=== PATIENT | male | born 1990 | race Caucasian/White ===

== ENCOUNTER 2021-06-18 08:21 | Emergency (ER) | payer SELFPAY ==
[~2021-06-18] VITALS: Ht 172.7 cm; Wt 119.8 kg
--- NOTE | 2021-06-18 09:50 | PHYS DOC ---
Past Medical History Past Medical History: Anxiety, Hypertension Alcohol Use: None Drug Use: None General Adult EDM: Chief Complaint: ANXIETY/PANIC ATTACK HPI: HPI: Patient is a 31 year old male with history of high blood pressure and anxiety who presents with 2 weeks of progressive, worsening anxiety. He states that he has become increasingly irritable and feels like he is "caged." He denies any pain, but reports shortness of breath and sensation of difficulty swallowing. P atient states he has been prescribed alprazolam in the past to control his anxiety by his primary care doctor, but he has been out of the medication for about a month. During this time, he also has been out of his Norvasc 5 mg. Patient denies HI/SI. Review of Systems: Review of Systems: Constitutional: Denies fever or chills. Eyes: Denies change in visual acuity or visual field deficits. Respiratory: See HPI Cardiovascular: Denies chest pain, palpitations or edema. GI: Denies abdominal pain, nausea, vomiting, bloody stools or diarrhea. : Denies dysuria or hematuria. Musculoskeletal: Denies back pain or joint pain. Integument: Denies rash or other skin lesions. Neurologic: Denies headache, focal weakness or sensory changes. Psychiatric: See HPI Heart Score: C/O Chest Pain: No Current Medications: Current Medications Medications (Trade) Dose Ordered Sig/Alina Start Time Stop Time Status Last Admin Dose Admin Amlodipine Besylate (Norvasc) 5 mg 1X ONCE 06/18/21 09:30 06/18/21 09:31 UNV Lorazepam (Ativan) 1 mg 1X ONCE 06/18/21 09:30 06/18/21 09:31 UNV Physical Exam: PE: Constitutional: Well developed, well nourished, non-toxic appearance, patient is tearful and appears tense. HENT: Normocephalic, atraumatic, bilateral external ears normal, oropharynx moist, no oral exudates, nose normal. Eyes: PERRLA, EOMI, conjunctiva normal, no discharge. Neck: Normal range of motion, no tenderness, supple, no stridor. Cardiovascular: Heart rate regular rhythm, no murmur. Lungs & Thorax: Bilateral breath sounds clear to auscultation. Abdomen: Bowel sounds normal, soft, no tenderness, no masses, no pulsatile m asses. Skin: Warm, dry, no erythema, no rash. Neurologic: Alert and oriented x4, motor function grossly intact, sensory function grossly intact, no focal deficits noted. Psychologic: Affect anxious, fair judgment, mood "anxious." EKG: EKG: EKG Interpreted by Dr. Evans at 0948: Regular rate and rhythm 73 bpm with no ectopic beats. QT 374 ms/QTc 416 ms. No STEMI. Course & Med Decision Making: Course & Med Decision Making Pertinent Labs and Imaging studies reviewed. (See chart for details) Patient is a 31-year-old male with history of anxiety. He has been out of his medication for about a month. He reports over the past 2 weeks, his anxiety has progressively gotten worse. He reports he is extremely sensitive and irritable. He reports he has been overwhelmed while driving, to the point where he is pulled over to calm himself down. Patient was provided with Ativan and 1 dose of Norvasc here in the department. He reports he is starting to calm down on reevaluation. In discussing treatment going forward, I offered prescription for hydroxyzine as well as a 1 month supply of Norvasc. Patient states that hydroxyzine has not worked for him in the past, and requests refill of benzodiazepine. I discussed that benzos are easily abused and not the drug of choice for daily anxiety. Patient verbalizes understanding, but states he still would rather have benzos versus hydroxyzine. In my opinion, it would be best that he see a mental health professional for a refill of benzodiazepine medication. I will send in a higher dose hydroxyzine as well as 1 month supply of Norvasc. Patient was provided with resources for mental health evaluation and treatment. Patient understands and is agreeable to discharge plan. Lizet Disclaimer: Lizet Disclaimer: This electronic medical record was generated, in whole or in part, using a voice recognition dictation system. Departure Departure Impression: Primary Impression: Anxiety disorder Qualified Codes: F41.3 - Other mixed anxiety disorders Additional Impression: Long-term use of high-risk medication Disposition: HOME / SELF CARE / HOMELESS Condition: STABLE Patient Instructions: Anxiety and Panic Attacks, [id number] Additional Instructions: As discussed, benzodiazepine drugs are a high risk medication and can form dependence quickly. They are best prescribed by mental health professionals for breakthrough anxiety/panic attacks. As you were going to see your primary care provider within the week, and you have not been provided with resources to seek psychological/psychiatric evaluation and care, I have prescribed a course of Vistaril. Additionally, you have a 1 month supply of your high blood pressure medication as well. Please return to the emergency department if you develop any new symptoms or your symptoms are unmanageable at home. Please keep your appointment next week with your primary care provider and set up an appointment with mental health professional at your convenience. Scripts Amlodipine Besylate (NORVASC) 5 Mg Tablet 1 TAB PO DAILY, #30 TAB 0 Refills Prov: WESLEY YADAV 06/18/21 Hydroxyzine Pamoate (VISTARIL) 50 Mg Capsule 1-2 CAP PO TID MDD 300mg, #60 CAP 0 Refills Prov: WESLEY YADAV 06/18/21 WESLEY YADAV Jun 18, 2021 09:50
[2021-06-18 09:57] LABS: BILIRUBIN,URINE NEGATIVE (NEG); CLARITY,URINE CLEAR; COLOR,URINE YELLOW; NITRITE,URINE NEGATIVE (NEG); PROTEIN,URINE NEGATIVE (NEG-TRACE); UROBILINOGEN,URINE 0.2 mg/dL (0.2 mg/dL)
[2021-06-18 10:11] LABS: BACTERIA,URINE 0 /HPF (0-FEW); RBC,URINE 0 /HPF (0-2); WBC,URINE 0 /HPF (0-4)
[2021-06-18] MEDS ORDERED: HYDR50CA PO (10:45)
[2021-06-18] MEDS ORDERED: AMLO5TAB4 PO (10:45)
[2021-06-18 10:50] VITALS: BP 150/74
--- NOTE | 2021-06-18 11:12 | EKG ---
[facility] [address] [place] [id number] Test Date: 2021-06-18 Test Time: 09:38:40 Pat Name: TIAN CATHERINE Department: Room: Gender: M Terminal Gauger: : 1990 Requested By: WESLEY YADAV Order Number: [id number] Reading MD: Kane Moreno Measurements Intervals [place] Rate: 73 P: -17 TX: 172 QRS: 8 QRSD: 90 T: 30 QT: 374 QTc: 416 Interpretive Statements SINUS RHYTHM NON SPECIFIC ST-T WAVE CHANGES Electronically Signed On 06-18-2021 15:23:42 MATERIAL ATTENDANT by Kane Moreno
== END 2021-06-18 10:52 | disposition home or self-care (01) ==
LOC: ER 08:21
DX: F41.3 Other mixed anxiety disorders (principal); I10 Essential (primary) hypertension; Z79.899 Other long term (current) drug therapy
CPT/HCPCS: 81001; 93005; 99284